=== PATIENT | male | born 1950 | race Caucasian/White ===

== ENCOUNTER 2021-04-15 17:52 | Emergency (ER) | payer OTHER ==
--- OUTSIDE RECORDS SUMMARY | 2021-04-15 17:55 | XMS REPORT | Continuity of Care Document ---
:1950 Author Organization [facility] t Address [address] [place] [address] Care Team Providers Name Role Phone Riley GALEANA Primary Care Physician Jordyn GALEANA Attending Clinician Olegario PADILLA Attending Clinician Unavailable Payers Payer Name Policy Type Policy Effective Date Expiration Date Sour ce Number MEDICAREMEDICARE PART [id number] 2016 [place] juvenal Elis AND 00:00:00 [employer] [id number] 2015- [place] [id number] 2000 [place] MEDICARE DUAL 00:00:00 [employer] COMPLETE PLAN (HMO D-SNP)[id number] Problems This patient has no known problems. Allergies, Adverse Reactions, Alerts This patient has no known allergies or adverse reactions. Social History Social Habit Start Date Stop Date Quantity Comments Source Exposure to Not sure [place] [facility] SARS-CoV-2 (event) Cigarettes smoked 2018-06-28 2018-06-28 Marcus Garza current (pack per 00:00:00 00:00:00 day) - Reported Tobacco use and 2018-06-28 2018-06-28 Never used Marcus garciasodist exposure 00:00:00 00:00:00 Alcohol intake 2018-06-28 2018-06-28 Current drinker [place] on [facility] 00:00:00 00:00:00 of alcohol (finding) Sex [birth year] M Marcus garciasodist 00:00:00 00:00:00 Smoking Status Start Date Stop Date Source Current every day smoker 2018-06-28 00:00:00 Tariq Desaiist Medications Ordered Filled Start Stop Current Ordering Indication Dosage Frequency Signature Comments Components Source Medication Medication Date Date Medication? Clinician (SIG) Name Name oxybutynin 2020- Yes 10mg Q24H Take 1 [place] XL 04-15 06-20 tablet (10 [facility] (Ditropan 00:00: 23:59 mg total) st XL) 10 MG 00 :00 by mouth 24 hr daily as tablet needed (bladder spasms) for up to 30 days. acetaminoph 2020- Yes acute pain 1{tbl} Q6H Take 1-2 [place] en-codeine 04-15-26 tablets by Me dominguez (TYLENOL 00:00: 23:[address] WITH 00 :00 every 6 CODEINE #3) (six) 300-30 mg hours as per tablet needed for moderate pain for up to 5 days .acute pain. levoFLOXaci 2020- Yes 750mg QD Take 1 [place] n 04-15 tablet [facility] (Levaquin) 00:00: 23:59 ([address] 750 MG 00 :00 total) by tablet mouth daily for 3 days. phenazopyri 2020- Yes 100mg Q.[id number] Take 1 [place] dine 04-15-24 [id number] tablet [facility] i (Pyridium) 00:00: 23:59 3D ([address] 100 MG 00 :00 total) by tablet mouth 3 (three) times a day for 3 days. diazePAM 2020- No Take 2 [place] (Valium) 10 -18 05-20 tablets Meth helio MG tablet 00:00: 23:[address] 00 :00 prior to procdure cyanocobala Yes 500ug QD Take 500 [place] min (B-12 5-14 mcg by [facility] DOTS) 500 10:22: mouth st MCG tablet 24 daily. omeprazole Yes 20mg QD Take 20 mg [place] (PriLOSEC) 5-14 by mouth Metho di 20 MG 10:22: daily. st capsule 24 tamsulosin Yes TAKE 1 [place] on (FLOMAX) 5-23 CAPSULE BY Metho di 0.4 mg 00:00: MOUTH st capsule 00 EVERY DAY amLODIPine No 10mg QD Take 10 mg [place] (NORVASC) 7-15 -21 by mouth Metho di 10 mg 00:00: 00:[address] tablet 00 :00 losartan Yes 100mg QD Take 100 [place] (COZAAR) 7-13 mg by [facility] 100 MG 00:00: mouth st tablet 00 daily. Procedures This patient has no known procedures. Plan of Care Planned Activity Planned Date Details Comments Source Future Scheduled 2021-06-26 INFLUENZA VACCINE Mraicel lopez [facility] 00:00:00 [code = INFLUENZA VACCINE] Future Scheduled 2001 COLONOSCOPY SCREENING [facility] Test 00:00:00 [code = COLONOSCOPY SCREENING] Future Scheduled 2001 SHINGLES VACCINES (#1) [facility] Test 00:00:00 [code = SHINGLES VACCINES (#1)] Future Scheduled 1969 Hepatitis C screening [facility] Test 00:00:00 (procedure) [code = 715813232] Future Scheduled 1963 COVID-19 VACCINE (1) Tariq stojessica [facility] Test 00:00:00 [code = COVID-19 VACCINE (1)] Future Scheduled 1957 65+ PNEUMOCOCCAL [place] [facility] Test 00:00:00 VACCINE (1 of 2 - PPSV23) [code = 65+ PNEUMOCOCCAL VACCINE (1 of 2 - PPSV23)] Encounters Start End Encounter Admission Attending Care Care Encounter Source Date/Time Date/Time Type Type Clinicians Facility Department ID 2021-04-15 2021-04-15 Outpatient [facility] [id number] [place] 00:00:00 00:00:00 SID [id number] 2021-02-23 2021-02-23 Outpatient [facility] [id number] [place] 00:00:00 00:00:00 SID [address] 2021-01-17 2021-01-17 [facility] [id number] [place] 00:00:00 00:00:00 SID [address] Results This patient has no known results.
--- NOTE | 2021-04-15 18:50 | EDPHYS ---
Physician Documentation [facility] Name: Sandeep Levin Age: 71 yrs Sex: Male : 1950 Arrival Date: 04/15/2021 Time: 17:56 Bed 17 Private MD: Elis Bowers C ED Physician Walter Sanford HPI: 04/15 18:46 This 71 yrs old Male presents to ER via Ambulatory with complaints of Urinary jr8 Problem. 18:46 Onset: The symptoms/episode began/occurred acutely, today. Associated signs and jr8 symptoms: The patient has no apparent associated signs or symptoms. Severity of symptoms: At their worst the symptoms were mild. The patient has not experienced similar symptoms in the past. The patient has been recently seen by a physician:. Patient had urologic procedure to open prostate up due to BPH this AM. Stated that he has since not been able to urinate well and now no urination at all. Urology asked that we place chow and will see patient on Sunday for removal. Patient stated that otherwise he feels fine . Historical: - Allergies: 18:05 No Known Allergies; em - PMHx: 18:05 Hypertension; em - PSHx: 18:05 "uro lift"; crescencio. knee; back; em - Immunization history:: Adult Immunizations up to date. - Social history:: Smoking status: Patient denies any tobacco usage or history of. ROS: 18:46 Eyes: Negative for injury, pain, redness, and discharge, ENT: Negative for injury, jr8 pain, and discharge, Neck: Negative for injury, pain, and swelling, Cardiovascular: Negative for chest pain, palpitations, and edema, Respiratory: Negative for shortness of breath, cough, wheezing, and pleuritic chest pain, Abdomen/GI: Negative for abdominal pain, nausea, vomiting, diarrhea, and constipation, Back: Negative for injury and pain, MS/Extremity: Negative for injury and deformity, Skin: Negative for injury, rash, and discoloration, Neuro: Negative for headache, weakness, numbness, tingling, and seizure. 18:46 : Positive for hematuria, retention of urine . Exam: 18:46 Constitutional: This is a well developed, well nourished patient who is awake, alert, jr8 and in no acute distress. Cardiovascular: Regular rate and rhythm with a normal S1 and S2. No gallops, murmurs, or rubs. Normal PMI, no JVD. No pulse deficits. Respiratory: Lungs have equal breath sounds bilaterally, clear to auscultation and percussion. No rales, rhonchi or wheezes noted. No increased work of breathing, no retractions or nasal flaring. Abdomen/GI: Soft, non-tender, with normal bowel sounds. No distension or tympany. No guarding or rebound. No evidence of tenderness throughout. 18:46 : Male external genitalia: normal, no abrasion, no discharge, no erythema, no injury, no swelling, no tenderness, no evidence of ulceration, Bladder: distension, that is mild, tenderness, that is mild. Vital Signs: 18:02 BP 140 / 94; Pulse 84; Resp 18; Temp 98.2; Pulse Ox 100% ; Weight 87.09 kg; Height 6 em ft. 2 in. (187.96 cm); Pain 8/10; 18:02 Body Mass Index 24.65 (87.09 kg, 187.96 cm) em MDM: 18:17 Patient medically screened. [id number] 18:46 Data reviewed: vital signs, nurses notes, and as a result, I will discharge patient. 8 Data interpreted: Pulse oximetry: on room air is 100 %. Interpretation: normal. Counseling: I had a detailed discussion with the patient and/or guardian regarding: the historical points, exam findings, and any diagnostic results supporting the discharge/admit diagnosis, the need for outpatient follow up, a urologist, to return to the emergency department if symptoms worsen or persist or if there are any questions or concerns that arise at home. Response to treatment: the patient's symptoms have markedly improved after treatment. 04/15 18:18 Order name: Veena; Complete Time: 18:49 jr8 Administered Medications: No medications were administered Disposition: 04/16 13:16 Co-signature as Attending Physician, Walter Sanford MD I agree with the assessment and kdr plan of care. Disposition: 04/15/21 18:50 Discharged to Home. Impression: Retention of urine, Hematuria. - Condition is Stable. - Discharge Instructions: Chow Catheter Care, Adult, Hematuria, Adult, Acute Urinary Retention, Male. - Medication Reconciliation Form, Thank You Letter, Antibiotic Education, Prescription Opioid Use form. - Follow up: Private Physician; When: 2 - 3 days; Reason: Recheck today's complaints, Continuance of care, Re-evaluation by your physician. - Problem is new. - Symptoms have improved. Signatures: Walter Sanford MD MD [facility] Bobby Owusu, RN RN Jean Guan PA PA jr8 Carolina Flores RN RN ca1 Corrections: (The following items were deleted from the chart) 04/15 19:13 18:50 04/15/2021 18:50 Discharged to Home. Impression: Retention of urine; Hematuria. ca1 Condition is Stable. Forms are Medication Reconciliation Form, Thank You Letter, Antibiotic Education, Prescription Opioid Use. Follow up: Private Physician; When: 2 - 3 days; Reason: Recheck today's complaints, Continuance of care, Re-evaluation by your physician. Problem is new. Symptoms have improved. jr8
--- NOTE | 2021-04-15 18:50 | ER ---
Nurse's Notes [facility] Name: Sandeep Levin Age: 71 yrs Sex: Male : 1950 Arrival Date: 04/15/2021 Time: 17:56 Bed 17 Private MD: Elis Bowers C Diagnosis: Retention of urine;Hematuria Presentation: 04/15 18:02 Chief complaint: Patient states: had a "uro lift" this morning at 10 AM, called and em was told to come to the ED because pt has been having drops of blood, told to come here and have a catheter put in, has not voided since before procedure. Coronavirus screen: Client denies travel out of the [place] in the last 14 days. Ebola Screen: Patient negative for fever greater than or equal to 101.5 degrees Fahrenheit, and additional compatible Ebola Virus Disease symptoms Patient denies exposure to infectious person. Patient denies travel to an Ebola-affected area in the 21 days before illness onset. No symptoms or risks identified at this time. Initial Sepsis Screen: Does the patient meet any 2 criteria? No. Patient's initial sepsis screen is negative. Does the patient have a suspected source of infection? No. Patient's initial sepsis screen is negative. Risk Assessment: Do you want to hurt yourself or someone else? Patient reports no desire to harm self or others. Onset of symptoms was April 15, 2021. 18:02 Method Of Arrival: Ambulatory em 18:02 Acuity: KRISTIE 3 em Historical: - Allergies: 18:05 No Known Allergies; em - PMHx: 18:05 Hypertension; em - PSHx: 18:05 "uro lift"; crescencio. knee; back; em - Immunization history:: Adult Immunizations up to date. - Social history:: Smoking status: Patient denies any tobacco usage or history of. Screenin:10 Abuse screen: Denies threats or abuse. Denies injuries from another. Nutritional ca1 screening: No deficits noted. Tuberculosis screening: No symptoms or risk factors identified. Fall Risk None identified. Assessment: 18:10 General: Appears in no apparent distress. uncomfortable, Behavior is calm, cooperative, ca1 appropriate for age. Pain: Complains of pain in groin Pain at worst was 10 out of 10 on a pain scale. Pain began at 1000 this morning. Is intermittent, Aggravated by urinating. Neuro: Level of Consciousness is awake, alert, obeys commands, Oriented to person, place, time, situation. : Reports inability to void, since 1000 this morning after the procedure. Derm: Skin is intact, is healthy with good turgor, Skin is pink, warm \\T\\ dry. Musculoskeletal: Circulation, motion, and sensation intact. Capillary refill < 3 seconds. 18:59 Reassessment: Patient appears in no apparent distress at this time. Patient and/or ca1 family updated on plan of care and expected duration. Pain level reassessed. Patient is alert, oriented x 3, equal unlabored respirations, skin warm/dry/pink. Vital Signs: 18:02 BP 140 / 94; Pulse 84; Resp 18; Temp 98.2; Pulse Ox 100% ; Weight 87.09 kg; Height 6 em ft. 2 in. (187.96 cm); Pain 8/10; 18:02 Body Mass Index 24.65 (87.09 kg, 187.96 cm) em ED Course: 17:56 Patient arrived in ED. mr 17:56 Elis Bowers MD is Private Physician. mr 18:04 Triage completed. em 18:05 Arm band placed on. em 18:06 Carolina Flores, YESSY is Primary Nurse. ca1 18:10 Patient has correct armband on for positive identification. Bed in low position. Call ca1 light in reach. Side rails up X 1. Pulse ox on. NIBP on. Warm blanket given. 18:15 Bladder scan completed. 624. ca1 18:17 [facility]ust [facility] jr8 18:17 Walter Sanford MD is Attending Physician. jr8 18:40 Straight cath inserted, using sterile technique, 16 Fr. Specimen obtained. By Ramon, ED ca1 tech Returned bloody urine. Patient tolerated well. 19:06 No provider procedures requiring assistance completed. Patient did not have IV access ca1 during this emergency room visit. Administered Medications: No medications were administered Output: 19:00 Urine: 650ml (Curiel); Total: 650ml. ca1 Outcome: 18:50 Discharge ordered by . jr8 19:06 Discharged to home ambulatory, with significant other. ca1 19:06 Condition: stable 19:06 Discharge instructions given to patient, family, Instructed on discharge instructions, follow up and referral plans. Demonstrated understanding of instructions, follow-up care. 19:13 Patient left the ED. ca1 Signatures: Latisha Albarado Edgar, RN RN Jean Guan PA PA jr8 Carolina Flores RN RN ca1
[2021-04-15 19:46] VITALS: BP 140/94; TEMP 98.2; O2SAT 100
== END 2021-04-15 19:13 | disposition home or self-care (01) ==
LOC: ER 17:52
DX: R31.9 Hematuria, unspecified (principal); I10 Essential (primary) hypertension; Z98.890 Other specified postprocedural states
CPT/HCPCS: 51702; 99283

== ENCOUNTER 2021-10-22 12:53 | Emergency (ER) | payer OTHER ==
--- OUTSIDE RECORDS SUMMARY | 2021-10-22 12:55 | XMS REPORT | Continuity of Care Document ---
:1950 Author Organization [facility] t Address [address] [place] [address] [address] [place] [address] Care Team Providers Name Role Phone KEIKO Attending Clinician Unavailable Problems This patient has no known problems. Allergies, Adverse Reactions, Alerts This patient has no known allergies or adverse reactions. Medications This patient has no known medications. Procedures This patient has no known procedures. Encounters Start End Encounter Admission Attending Care Care Encounter Source Date/Time Date/Time Type Type Clinicians Facility Department ID 2021-08-31 2021-08-31 Outpatient [facility] [id number] [place] 00:00:00 00:00:00 SID [id number] 2021-06-02 2021-06-02 [facility] [id number] [place] 00:00:00 00:00:00 SID [address] 2021-04-18 2021-04-18 Outpatient [facility] [id number] [place] 00:00:00 00:00:[address] 2021-04-15 2021-04-15 [facility] [id number] [place] 00:00:00 00:00:00 SID [address] 2021-02-23 2021-02-23 [facility] [id number] [place] 00:00:00 00:00:00 SID [address] 2021-01-17 2021-01-17 Outpatient [facility] [id number] [place] 00:00:00 00:00:00 SID [address] Results This patient has no known results.
--- NOTE | 2021-10-22 14:47 | RAD REPORT ---
EXAM DESCRIPTION: CTAbdomen Pelvis Wo Contrast - 10/22/2021 2:33 pm CLINICAL HISTORY: ABD PAIN COMPARISON: Lumbar Spine 3 Views dated 06/09/2020 TECHNIQUE: CT of the abdomen and pelvis was performed. All CT scans are performed using dose optimization technique as appropriate and may include automated exposure control or mA/KV adjustment according to patient size. FINDINGS: Lower chest: No acute abnormality. Liver: No acute abnormality or suspicious lesions. Biliary: Cholelithiasis. Prominent extrahepatic common bile duct with tapering distally toward the pa ncreatic head. Stomach: No significant focal abnormality. Duodenum: No significant focal abnormality. Pancreas: No significant abnormality. Spleen: No significant abnormality. Adrenal: No suspicious lesions. Kidney/ureter: No hydronephrosis. No renal calculi. Retroperitoneum: No retroperitoneal adenopathy. Vascular: No aneurysm. Bowel: No significant focal abnormality. Peritoneum: No ascites or free air. Bladder: Grossly unremarkable. Reproductive: No adnexal masses. Bones: Left posterior eleventh and twelfth rib fractures. These are minimally displaced. L1 compressi on fracture this remote. Other: n/a IMPRESSION: Minimally displaced left posterior eleventh and twelfth rib fractures. No acute intra-ab dominal abnormality, however.
--- NOTE | 2021-10-22 14:53 | EDPHYS ---
Physician Documentation [facility] Name: Sandeep Levin Age: 71 yrs Sex: Male : 1950 Arrival Date: 10/22/2021 Time: 12:57 Bed 11 Private MD: Elis Bowers C ED Physician Jerad Hanson HPI: 10/22 14:20 This 71 yrs old Male presents to ER via Ambulatory with complaints of Fall margarito Injury, Back Pain. 14:20 Details of fall: The patient fell from a height, from a ladder, approximately 1 feet. margarito Onset: The symptoms/episode began/occurred just prior to arrival. Associated injuries: The patient sustained left mid back, decreased range of motion, painful injury. Severity of symptoms: At their worst the symptoms were mild, in the emergency department the symptoms are unchanged. The patient has not experienced similar symptoms in the past. Historical: - Allergies: 13:33 No Known Allergies; iw - Home Meds: 13:33 losartan 50 mg oral tab 1 tab once daily [Active]; amlodipine 5 mg tab 1 tab once daily iw [Active]; mesalamine 800 mg oral TbEC 1 tabs twice a day [Active]; atorvastatin 20 mg oral tab 1 tab once daily [Active]; tadalafil 5 mg oral tab 1 tab once daily [Active]; Vitamin B-12 1,000 mcg Oral TbER [Active]; magnesium oxide 400 mg magnesium Oral cap [Active]; - PMHx: 13:33 Hypertension; iw - PSHx: 13:33 back; iw - Immunization history:: Client reports receiving the 2nd dose of the Covid vaccine. - Social history:: Smoking status: . ROS: 14:26 Constitutional: Negative for fever, chills, and weight loss, Eyes: Negative for injury, margarito pain, redness, and discharge, ENT: Negative for injury, pain, and discharge, Neck: Negative for injury, pain, and swelling, Cardiovascular: Negative for chest pain, palpitations, and edema, Respiratory: Negative for shortness of breath, cough, wheezing, and pleuritic chest pain, Abdomen/GI: Negative for abdominal pain, nausea, vomiting, diarrhea, and constipation, : Negative for injury, bleeding, discharge, and swelling, MS/Extremity: Negative for injury and deformity, Skin: Negative for injury, rash, and discoloration, Neuro: Negative for headache, weakness, numbness, tingling, and seizure, Psych: Negative for depression, anxiety, suicide ideation, homicidal ideation, and hallucinations, Allergy/Immunology: Negative for hives, rash, and allergies, Endocrine: Negative for neck swelling, polydipsia, polyuria, polyphagia, and marked weight changes, Hematologic/Lymphatic: Negative for swollen nodes, abnormal bleeding, and unusual bruising. 14:26 Back: Positive for pain at rest, pain with movement, of the left mid back. Exam: 14:26 Constitutional: This is a well developed, well nourished patient who is awake, alert, margarito and in no acute distress. Head/Face: Normocephalic, atraumatic. Eyes: Pupils equal round and reactive to light, extra-ocular motions intact. Lids and lashes normal. Conjunctiva and sclera are non-icteric and not injected. Cornea within normal limits. Periorbital areas with no swelling, redness, or edema. ENT: Nares patent. No nasal discharge, no septal abnormalities noted. Tympanic membranes are normal and external auditory canals are clear. Oropharynx with no redness, swelling, or masses, exudates, or evidence of obstruction, uvula midline. Mucous membranes moist. Neck: Trachea midline, no thyromegaly or masses palpated, and no cervical lymphadenopathy. Supple, full range of motion without nuchal rigidity, or vertebral point tenderness. No Meningismus. Chest/axilla: Normal chest wall appearance and motion. Nontender with no deformity. No lesions are appreciated. Cardiovascular: Regular rate and rhythm with a normal S1 and S2. No gallops, murmurs, or rubs. Normal PMI, no JVD. No pulse deficits. Respiratory: Lungs have equal breath sounds bilaterally, clear to auscultation and percussion. No rales, rhonchi or wheezes noted. No increased work of breathing, no retractions or nasal flaring. Abdomen/GI: Soft, non-tender, with normal bowel sounds. No distension or tympany. No guarding or rebound. No evidence of tenderness throughout. Male : Normal genitalia with no discharge or lesions. Skin: Warm, dry with normal turgor. Normal color with no rashes, no lesions, and no evidence of cellulitis. MS/ Extremity: Pulses equal, no cyanosis. Neurovascular intact. Full, normal range of motion. Neuro: Awake and alert, GCS 15, oriented to person, place, time, and situation. Cranial nerves II-XII grossly intact. Motor strength 5/5 in all extremities. Sensory grossly intact. Cerebellar exam normal. Normal gait. Psych: Awake, alert, with orientation to person, place and time. Behavior, mood, and affect are within normal limits. 14:26 Back: pain, that is mild, that is moderate, ROM is painful, normal spinal alignment noted, CVA tenderness, that is mild, that is moderate, is noted on the left, vertebral tenderness, is not appreciated, muscle spasm, is not present. Vital Signs: 13:35 BP 152 / 110; Pulse 65; Resp 16; Temp 97.6; Pulse Ox 98% on R/A; Weight 90.72 kg; iw Height 6 ft. 2 in. (187.96 cm); 13:35 Body Mass Index 25.68 (90.72 kg, 187.96 cm) iw MDM: 13:40 Patient medically screened. [facility] 14:27 Differential diagnosis: contusion, fracture, laceration, multiple trauma, sprain, margarito strain. Data reviewed: vital signs, nurses notes, lab test result(s), CBC, electrolytes, radiologic studies, CT scan. Data interpreted: steam tender: not applicable for this patient encounter. rate is 65 beats/min, rhythm is regular. Counseling: I had a detailed discussion with the patient and/or guardian regarding: the historical points, exam findings, and any diagnostic results supporting the discharge/admit diagnosis, lab results, radiology results, the need for outpatient follow up, for definitive care, a family practitioner. 10/22 15:01 Order name: Urine Dipstick-Ancillary EDAK 10/22 14:20 Order name: CT Abd/Pelvis - Without Contrast; Complete Time: 14:51 margarito 10/22 14:20 Order name: Urine Dipstick-Ancillary (obtain specimen) [facility] 10/22 14:53 Order name: INCENTIVE SPIROMETRY margarito Administered Medications: 14:46 Not Given (Patient Refused): [place] (HYDROcodone-acetaminophen) (7.5 mg-325 mg) 1 tabs iw PO once; RASS on ADMIN: Combtv4, Very Agttd3, Agttd2, Rstlss1, AlertClm0, Drwsy-1, Lt Sdtn-2, Mod Sdtn-3, Dp Sdtn-4, UnArsble-5 Disposition Summary: 10/22/21 14:52 Discharge Ordered Location: Home margarito Problem: new margarito Symptoms: have improved margarito Condition: Stable margarito Diagnosis - Fall (on) (from) other stairs and steps margarito - Contusion of left back wall of thorax margarito - Multiple fractures of ribs, left side - posterior 11th \T\ 12th margarito Followup: margarito - With: - When: 2 - 3 days - Reason: Recheck today's complaints, Continuance of care, Re-evaluation by your physician Discharge Instructions: - Discharge Summary Sheet margarito - Contusion margarito - Fall Prevention in the Home, Adult margarito - Contusion, [id number] margarito - Fall Prevention in the Home, Adult, [id number] margarito - How to Use an Incentive Spirometer margarito Forms: - Medication Reconciliation Form margarito - Thank You Letter margarito - Antibiotic Education margarito - Prescription Opioid Use margarito Prescriptions: - Ibuprofen 600 mg Oral Tablet - take 1 tablet by ORAL route every 6 hours As needed take with food; 20 tablet; margarito Refills: 0, Product Selection Permitted - Cyclobenzaprine 5 mg Oral Tablet - take 1 tablet by ORAL route 3 times per day As needed; 15 tablet; Refills: 0, [facility] Product Selection Permitted - Tylenol-Codeine #3 300 mg-30 mg Oral - take 2 tablet by ORAL route every 4-6 hours; 20 tablet; Refills: 0, Product margarito Selection Permitted Signatures: Dispatcher [employer] Jerad Garcia MD MD cha Williams, Irene, RN RN iw
--- NOTE | 2021-10-22 14:53 | ER ---
Nurse's Notes [facility] Name: Sandeep Levin Age: 71 yrs Sex: Male : 1950 Arrival Date: 10/22/2021 Time: 12:57 Bed 11 Private MD: Elis Bowers C Diagnosis: Fall (on) (from) other stairs and steps;Contusion of left back wall of thorax;Multiple fractures of ribs, left side-posterior 11 \T\ Presentation: 10/22 13:31 Chief complaint: Patient states: was getting off a 3 step stool, missed the last step, iw went down, fell backward, hit edge of couch on low back, no blood in urine and does not think anything is broken, did not hit his head. Care prior to arrival: None. 13:31 Acuity: KRISTIE 4 iw 13:31 Method Of Arrival: Ambulatory iw 14:00 Coronavirus screen: At this time, the client does not indicate any symptoms associated iw with coronavirus-19. Ebola Screen: Patient negative for fever greater than or equal to 101.5 degrees Fahrenheit, and additional compatible Ebola Virus Disease symptoms Patient denies exposure to infectious person. Patient denies travel to an Ebola-affected area in the 21 days before illness onset. No symptoms or risks identified at this time. Initial Sepsis Screen: Does the patient meet any 2 criteria? No. Patient's initial sepsis screen is negative. Does the patient have a suspected source of infection? No. Patient's initial sepsis screen is negative. Risk Assessment: Do you want to hurt yourself or someone else? Patient reports no desire to harm self or others. Onset of symptoms was October 22, 2021. Triage Assessment: 15:00 General: Appears in no apparent distress. Behavior is calm, cooperative, appropriate iw for age. Historical: - Allergies: 13:33 No Known Allergies; iw - Home Meds: 13:33 losartan 50 mg oral tab 1 tab once daily [Active]; amlodipine 5 mg tab 1 tab once daily iw [Active]; mesalamine 800 mg oral TbEC 1 tabs twice a day [Active]; atorvastatin 20 mg oral tab 1 tab once daily [Active]; tadalafil 5 mg oral tab 1 tab once daily [Active]; Vitamin B-12 1,000 mcg Oral TbER [Active]; magnesium oxide 400 mg magnesium Oral cap [Active]; - PMHx: 13:33 Hypertension; iw - PSHx: 13:33 back; iw - Immunization history:: Client reports receiving the 2nd dose of the Covid vaccine. - Social history:: Smoking status: . Screenin:00 Abuse screen: Denies threats or abuse. Denies injuries from another. Nutritional iw screening: No deficits noted. Tuberculosis screening: No symptoms or risk factors identified. Fall Risk Fall in past 12 months (25 points). Assessment: 14:00 General: Appears in no apparent distress. comfortable, Behavior is calm, cooperative. iw Pain: Complains of pain in back and left mid back. Neuro: Level of Consciousness is awake, alert, obeys commands, Oriented to person, place, time, situation, Moves all extremities. Full function. Cardiovascular: Patient's skin is warm and dry. Respiratory: Respiratory effort is even, unlabored, Respiratory pattern is regular. Derm: Skin is intact, is healthy with good turgor. Musculoskeletal: Range of motion: intact in all extremities. Vital Signs: 13:35 BP 152 / 110; Pulse 65; Resp 16; Temp 97.6; Pulse Ox 98% on R/A; Weight 90.72 kg; iw Height 6 ft. 2 in. (187.96 cm); 13:35 Body Mass Index 25.68 (90.72 kg, 187.96 cm) iw ED Course: 12:57 Patient arrived in ED. mr 12:57 Elis Bowers MD is Private Physician. mr 13:32 Triage completed. iw 13:35 Arm band placed on. iw 13:40 Jerad Hanson MD is Attending Physician. margarito 14:34 CT Abd/Pelvis - Without Contrast In Process Unspecified. EDMS 14:46 Mignon Luevano, YESSY is Primary Nurse. iw 14:52 Elis Bowers MD is Referral Physician. margarito 15:09 No provider procedures requiring assistance completed. Patient did not have IV access iw during this emergency room visit. Administered Medications: 14:46 Not Given (Patient Refused): [place] (HYDROcodone-acetaminophen) (7.5 mg-325 mg) 1 tabs iw PO once; RASS on ADMIN: Combtv4, Very Agttd3, Agttd2, Rstlss1, AlertClm0, Drwsy-1, Lt Sdtn-2, Mod Sdtn-3, Dp Sdtn-4, UnArsble-5 Outcome: 14:52 Discharge ordered by . margarito 15:09 Discharged to home ambulatory, with family. iw 15:09 Condition: good 15:09 Discharge instructions given to patient, Instructed on discharge instructions, follow up and referral plans. medication usage, Demonstrated understanding of instructions, follow-up care, medications, Prescriptions given X 3. 15:10 Patient left the ED. iw Signatures: Dispatcher [employer] EDNY Jerad Hanson MD MD cha Rivera, Latisha Mignon Rider, RN RN iw Corrections: (The following items were deleted from the chart) 20:24 15:09 Discharge instructions given to patient, Instructed on discharge instructions, iw follow up and referral plans. medication usage, Demonstrated understanding of instructions, follow-up care, medications, Prescriptions given X 1, iw
[2021-10-22 15:01] LABS: Urine Blood Negative (Negative); Urine Glucose Negative (Negative); Urine Protein Negative (Negative); Urine Specific Gravity 1.015 (1.005-1.030); Urine pH 6.5 (5.0-7.0)
[2021-10-22 15:49] VITALS: BP 152/110; TEMP 97.6; O2SAT 98
== END 2021-10-22 15:10 | disposition home or self-care (01) ==
LOC: ER 12:53
DX: S22.42XA Multiple fractures of ribs, left side, initial encounter for closed fracture (principal); S20.222A Contusion of left back wall of thorax, initial encounter; W11.XXXA Fall on and from ladder, initial encounter; I10 Essential (primary) hypertension
CPT/HCPCS: 74176; 81003; 99283